=== PATIENT | female | born 1965 | race Caucasian/White ===

== ENCOUNTER 2016-12-08 14:19 | Emergency (ER) | payer OTHER ==
[~2016-12-08] VITALS: Ht 170.2 cm; Wt 77.2 kg
[~2016-12-08 14:19] MED LIST: LIT300 PO
[2016-12-08 14:23] VITALS: BP 129/82
== END 2016-12-08 18:30 | disposition home or self-care (01) ==
LOC: ED 14:19
DX: T78.40XA Allergy, unspecified, initial encounter (principal); K14.0 Glossitis; G89.29 Other chronic pain; X58.XXXA Exposure to other specified factors, initial encounter
CPT/HCPCS: J2930; Q0163